=== PATIENT | male | born 1990 | race Two or more races ===

== ENCOUNTER → 2017-01-26 | Outpatient (REF) | payer BC, OTHER ==
[2017-01-26 15:46] LABS: MEAN CORPUSCULAR HEMOGLOBIN 29.1 pg (27.0-33.0); MEAN CORPUSCULAR HGB CONC 35.1 g/dl (32.0-36.5); RED CELL DISTRIBUTION WIDTH 12.5 % (11.5-14.5); WHITE BLOOD COUNT 4.1 10^3/uL (4.0-10.0)
[2017-01-26 16:25] LABS: ALBUMIN 4.5 GM/DL (3.2-5.2); ALBUMIN/GLOBULIN RATIO 1.45 (1.00-1.93); ALKALINE PHOSPHATASE 84 U/L (45-117); ALT/SGPT 44 U/L (12-78); ANION GAP 6 MEQ/L (8-16); AST/SGOT 29 U/L (15-37); BILIRUBIN,TOTAL 0.8 MG/DL (0.2-1.0); BLOOD UREA NITROGEN 11 MG/DL (7-18); CALCIUM LEVEL 9.3 MG/DL (8.5-10.1); CARBON DIOXIDE LEVEL 28 MEQ/L (21-32); CHLORIDE LEVEL 108 MEQ/L (98-107); CHOLESTEROL LEVEL 195 MG/DL (<200); GLOMERULAR FILTRATION RATE > 60.0 (>60); GLUCOSE, FASTING 81 MG/DL (70-105); POTASSIUM SERUM 4.4 MEQ/L (3.5-5.1); SODIUM LEVEL 142 MEQ/L (136-145); TOTAL PROTEIN 7.6 GM/DL (6.4-8.2); TRIGLYCERIDES LEVEL 157 MG/DL (<150)
== END ==
LOC: M SFHCADAM 10:49
PROVIDERS: ATTEND Family Medicine
DX: I10 Essential (primary) hypertension (principal)

== ENCOUNTER 2019-05-08 09:41 | Emergency (ER) | payer BC, OTHER, SELFPAY ==
[~2019-05-08] VITALS: Ht 188 cm; Wt 129.2 kg
[2019-05-08] MEDS ORDERED: LISI-672 PO (10:03)
[2019-05-08 10:06] LABS: BASO % 0.3 % (0.0-1.0); EOS # 0.2 10^3/uL (0.0-0.5); EOS % 2.4 % (0.0-3.0); HEMOGLOBIN 16.5 g/dl (13.5-17.5); LYMPH # 2.7 10^3/uL (1.5-5.0); LYMPH % 40.7 % (24.0-44.0); MEAN CORPUSCULAR HEMOGLOBIN 28.8 pg (27.0-33.0); MEAN CORPUSCULAR HGB CONC 35.1 g/dl (32.0-36.5); MEAN CORPUSCULAR VOLUME 82.2 fl (80.0-96.0); MONO # 0.6 10^3/uL (0.0-0.8); NEUTROPHILS # 3.1 10^3/uL (1.5-8.5); NEUTROPHILS % 47.4 % (36.0-66.0); PLATELET COUNT, AUTOMATED 220 10^3/uL (150-450); RED BLOOD COUNT 5.72 10^6/uL (4.30-6.10); WHITE BLOOD COUNT 6.6 10^3/uL (4.0-10.0)
--- NOTE | 2019-05-08 10:21 | REP ---
Head CT without contrast: History: New onset headache with vertigo Comparison study: Comparison head CT study August 01, 2015. CT findings: Bone window settings demonstrate an intact bony calvarium. There is no evidence of skull fracture or incidental bony calvarial lesion. The visualized paranasal sinuses appear clear. No intraorbital abnormality is seen. On soft tissue window setting images; the lateral, third, and fourth ventricles are normal in size and position. [place]-white differentiation pattern is normal above and below the tentorium. There are is no evidence of intracranial hemorrhage. No mass, edema, infarction, or midline shift is seen. No extra-axial fluid collection is appreciated. Impression: Negative noncontrast head CT. Electronically Signed by Brandon Garcia MD 05/08/2019 10:13 A
[2019-05-08 10:37] LABS: ERYTHROCYTE SEDIMENTATION RATE 3 mm/hr (0-15)
[2019-05-08] MEDS ORDERED: diphenhydrAMINE INJ 50MG/ML VIAL (J1200) IV ONE (11:00)
[2019-05-08] MEDS ORDERED: METOCLOPRAMIDE INJ 10MG/2ML VIAL (J2765) IV ONE (11:00)
[2019-05-08] MEDS ORDERED: KETOROLAC 30 MG/ML VIAL (J1885) IV ONE (11:00)
[2019-05-08] MEDS ORDERED: NS 1,000 ML IV ONE (11:00)
[2019-05-08] MEDS ORDERED: MECLIZINE 25 MG TABLET PO ONE (11:00)
[2019-05-08] MEDS ORDERED: lisinopriL 10 MG TAB PO STA (11:10)
--- NOTE | 2019-05-08 14:22 | REP ---
INDICATION: Vertigo PROCEDURE: MR brain without contrast COMPARISON STUDIES: No prior FINDINGS: The left vertebral artery appears dominant, and becomes the basilar artery. The right STUD DRIVER is dominant. There is a origin left STUD DRIVER. Internal carotid arteries appear symmetric. Proximal and distal MCA branches are unremarkable. A1 segment present on the right and absent on the left. DAVID branches arise from the right A1 segment. No significant stenosis or evidence of occlusion. CONCLUSION: Anatomic variant ute of Yadav is otherwise unremarkable. Electronically Signed by Edgard Call MD 05/08/2019 02:14 P
[2019-05-08 14:24] VITALS: BP 141/79
--- NOTE | 2019-05-08 14:24 | REP ---
INDICATION: Vertigo PROCEDURE: MRI brain without contrast COMPARISON STUDIES: No prior FINDINGS: No evidence of restricted diffusion to suggest acute infarction. No gradient-echo susceptibility to suggest hemorrhage. The ventricles and extra-axial CSF spaces are within normal limits. No mass effect or midline shift. No abnormal fluid collections. IMPRESSION: No acute findings. Electronically Signed by Edgard Call MD 05/08/2019 02:16 P
[2019-05-08] MEDS ORDERED: VALI5TAB PO (14:54)
[2019-05-08] MEDS ORDERED: MECL1TAB31 PO (14:54)
[2019-05-08] MEDS ORDERED: ONDA4TAB6 PO (14:54)
== END 2019-05-08 15:01 | disposition home or self-care (01) ==
LOC: M ED 09:41
DX: H81.10 Benign paroxysmal vertigo, unspecified ear (principal); I10 Essential (primary) hypertension; Z79.899 Other long term (current) drug therapy
CPT/HCPCS: 70450; 70544; 70551; 80047; 85025; 85652; 86140; 96361; 96374; 96375; 99284; J1200; J1885; J2765

== ENCOUNTER 2019-05-25 09:43 | Outpatient (RCR) | payer BC ==
[~2019-05-25 09:43] MED LIST: LISI-672 PO; MECL1TAB31 PO; ONDA4TAB6 PO; VALI5TAB PO
== END 2019-05-29 ==
LOC: M PT 09:43
PROVIDERS: ATTEND Physician Assistant Medical
DX: R42 Dizziness and giddiness (principal); Z51.89 Encounter for other specified aftercare

== ENCOUNTER → 2019-07-13 | Outpatient (REF) | payer OTHER ==
[2019-07-13 19:35] LABS: ALBUMIN 4.5 GM/DL (3.2-5.2); ALT/SGPT 63 U/L (12-78); BILIRUBIN,TOTAL 0.5 MG/DL (0.2-1.0); BLOOD UREA NITROGEN 15 MG/DL (7-18); CALCIUM LEVEL 9.1 MG/DL (8.5-10.1); CARBON DIOXIDE LEVEL 26 MEQ/L (21-32); CHLORIDE LEVEL 108 MEQ/L (98-107); CREATININE FOR GFR 0.76 MG/DL (0.70-1.30); FREE T4 0.88 NG/DL (0.76-1.46); GLOMERULAR FILTRATION RATE > 60.0 (>60); GLUCOSE, FASTING 87 MG/DL (70-100); HEMOGLOBIN A1c 5.3 %; POTASSIUM SERUM 3.9 MEQ/L (3.5-5.1); SODIUM LEVEL 139 MEQ/L (136-145); TOTAL PROTEIN 7.5 GM/DL (6.4-8.2)
[2019-07-13 19:36] LABS: FOLATE > 24.0 NG/ML (>5.4); VITAMIN B12 LEVEL 717 PG/ML (247-911)
== END ==
LOC: M SFHCADAM 16:15
PROVIDERS: ATTEND Family Medicine
DX: R20.2 Paresthesia of skin (principal)

== ENCOUNTER → 2019-10-07 | Outpatient (REF) | payer OTHER, BC ==
[~2019-10-07] MED LIST changes: -LISI-672 PO; +LISI30TA4 PO
== END ==
LOC: M SMT 14:21
PROVIDERS: ATTEND Urology
DX: Z30.2 Encounter for sterilization (principal)

== ENCOUNTER → 2021-03-09 | Outpatient (REF) | payer BC | LOC: M SFHCADAM 13:03 | PROVIDERS: ATTEND Family Medicine | DX: R05.9 Cough, unspecified (principal) ==

== ENCOUNTER → 2024-07-29 | Outpatient (REF) | payer BC ==
[~2024-07-29] MED LIST changes: +MECL-209 PO; -MECL1TAB31 PO; +ONDA-282 PO; -ONDA4TAB6 PO
[2024-07-29 13:56] LABS: BASO % 0.7 % (0.0-1.0); EOS # 0.2 10^3/uL (0.0-0.5); EOS % 3.8 % (0.0-3.0); HEMATOCRIT 45.4 % (42.0-52.0); HEMOGLOBIN 15.8 g/dl (13.5-17.5); LYMPH # 2.1 10^3/uL (1.5-5.0); LYMPH % 49.3 % (24.0-44.0); MEAN CORPUSCULAR HEMOGLOBIN 28.9 pg (27.0-33.0); MEAN CORPUSCULAR HGB CONC 34.8 g/dl (32.0-36.5); MEAN CORPUSCULAR VOLUME 83.2 fl (80.0-96.0); MONO # 0.5 10^3/uL (0.0-0.8); MONO % 11.1 % (2.0-8.0); NEUTROPHILS # 1.5 10^3/uL (1.5-8.5); NEUTROPHILS % 35.1 % (36.0-66.0); PLATELET COUNT, AUTOMATED 178 10^3/uL (150-450); RED BLOOD COUNT 5.46 10^6/uL (4.30-6.10); WHITE BLOOD COUNT 4.2 10^3/uL (4.0-10.0)
[2024-07-29 14:03] LABS: THYROID STIMULATING HORMONE 1.272 uIU/ML (0.55-4.78)
[2024-07-29 14:08] LABS: ALBUMIN 4.4 G/DL (3.2-5.2); ALKALINE PHOSPHATASE 74 U/L (40-129); ALT/SGPT 30 U/L (7.0-40); AST/SGOT 28 U/L (<34); BILIRUBIN,TOTAL 0.8 MG/DL (0.3-1.2); BLOOD UREA NITROGEN 14 MG/DL (9-23); CALCIUM LEVEL 9.5 MG/DL (8.5-10.1); CARBON DIOXIDE LEVEL 26 MMOL/L (20-31); CHLORIDE LEVEL 108 MMOL/L (98-107); CHOLESTEROL LEVEL 198 MG/DL (<200); CHOLESTEROL RISK RATIO 5.05 (<5); CREATININE FOR GFR 0.74 MG/DL (0.70-1.30); GLOMERULAR FILTRATION RATE > 60.0 (>60); GLUCOSE, FASTING 95 MG/DL (60-100); HDL CHOLESTEROL 39.2 MG/DL (>40); LDL CHOLESTEROL 132.8 MG/DL (<100); NON-HDL-C 158.8 MG/DL; POTASSIUM SERUM 4.2 MMOL/L (3.5-5.1); SODIUM LEVEL 142 MMOL/L (136-145); TOTAL PROTEIN 7.4 G/DL (5.7-8.2); TRIGLYCERIDES LEVEL 130 MG/DL (<150)
[2024-07-29 14:19] LABS: HEMOGLOBIN A1c 4.6 % (4.0-6.0)
== END ==
LOC: M SFHCADAM 08:06
PROVIDERS: ATTEND Family Medicine
DX: Z00.00 Encounter for general adult medical examination without abnormal findings (principal)

== ENCOUNTER → 2024-12-18 | Outpatient (REF) | payer BC | LOC: M SFHCDERM 17:10 | PROVIDERS: ATTEND Nurse Practitioner Family | DX: D22.9 Melanocytic nevi, unspecified (principal) ==

== ENCOUNTER 2025-04-19 09:27 | Day surgery (SDC) | payer BC ==
[~2025-04-19] VITALS: Ht 188 cm; Wt 122.5 kg
[2025-04-19] MEDS ORDERED: KETOROLAC 30 MG/ML 1 ML VIAL As Ordered ONE (09:31)
[2025-04-19] MEDS ORDERED: dexAMETHasone 4 MG/ML 1 ML VIAL As Ordered ONE (09:31)
[2025-04-19] MEDS ORDERED: ONDANSETRON 4MG/2ML VIAL As Ordered ONE (09:31)
[2025-04-19] MEDS ORDERED: LIDOCAINE 2% 100 MG/5 ML SDV (FOR ANES.) As Ordered ONE (09:31)
[2025-04-19] MEDS ORDERED: LR 1,000 ML IV SCH ×2 (10:20→12:00)
[2025-04-19] MEDS ORDERED: MIDAZOLAM INJ 2 MG/2 ML VIAL As Ordered ONE (11:06)
[2025-04-19] MEDS ORDERED: ACETAMINOPHEN 1000MG/100ML IV BAG As Ordered ONE (11:33)
[2025-04-19] MEDS ORDERED: MEPERIDINE 25 MG/ML 1 ML VIAL IV PRN (12:00)
[2025-04-19] MEDS: ONDANSETRON 4MG/2ML VIAL IV PRN (12:40)
[2025-04-19 12:53] VITALS: BP 129/83; TEMP 97.6; O2SAT 96
== END 2025-04-19 13:30 | disposition home or self-care (01) ==
LOC: M SDC 09:27
PROVIDERS: ATTEND Orthopaedic Surgery Hand Surgery
DX: G56.01 Carpal tunnel syndrome, right upper limb (principal); Z86.79 Personal history of other diseases of the circulatory system; Z90.89 Acquired absence of other organs
CPT/HCPCS: 29848; J0131; J0665; J1100; J1885; J2250; J2405; J3010